=== PATIENT | male | born 1955 | race Caucasian/White ===

== ENCOUNTER 2018-10-10 20:33 | Inpatient (IN) | payer OTHER ==
--- NOTE | 2018-10-10 20:37 | PDOC ---
Rapid Medical Evaluation Time Seen by Provider: 10/10/18 20:35 Medical Evaluation: Allergies Allergy/AdvReac Type Severity Reaction Status Date / Time No Known Allergies Allergy Verified 09/07/12 18:19 10/10/18 20:35 I have performed a brief in-person evaluation of this patient. The patient presents with a chief complaint of: L testicular pain since 6pm, radiating to the L groin. Pertinent physical exam findings: Pt in painful distress I have ordered the following: Testicular sono R/O torsion The patient will proceed to the ED for further evaluation. Discharge Disposition - Diagnosis Testicular pain, left - Referrals - Patient Instructions - Post Discharge Activity
[2018-10-10] MEDS ORDERED: morphine SULFATE 4 MG/ML VIAL ONE (21:54)
[2018-10-10] MEDS ORDERED: morphine CARPU-JECT 4 MG/1 ML DISP.SYRIN IVPUSH ONE (22:25)
--- NOTE | 2018-10-10 22:40 | PDOC ---
History of Present Illness - General Chief Complaint: Pain, Acute Stated Complaint: PAIN TO GROIN Time Seen by Provider: 10/10/18 20:35 Past History - Past Medical History Allergies/Adverse Reactions: Allergies Allergy/AdvReac Type Severity Reaction Status Date / Time No Known Allergies Allergy Verified 10/10/18 20:39 Home Medications: Ambulatory Orders Atenolol [Tenormin -] 100 mg PO DAILY 10/10/18 Atorvastatin Ca [Lipitor] 10 mg PO HS 10/10/18 Linagliptin/Metformin HCl [Jentadueto 2.5 mg-1000 mg Tab] 1 each PO DAILY Olmesartan/Hydrochlorothiazide [Olmesartan-Hctz 40-12.5 mg Tab] 1 each PO DAILY 10/10/18 Tamsulosin HCl [Flomax -] 0.4 mg PO DAILY@0830 #30 cap.er.24h 10/13/18 oxyCODONE HCL [Roxicodone -] 5 mg PO Q6H PRN #7 tablet MDD 3 10/13/18 COPD: No Diabetes: Yes HTN: Yes - Suicide/Smoking/Psychosocial Hx Smoking Status: No Smoking History: Unknown if ever smoked Have you smoked in the past 12 months: No Number of Cigarettes Smoked Daily: 0 Information on smoking cessation initiated: No Hx Alcohol Use: No Drug/Substance Use Hx: No *Physical Exam - Vital Signs Last Vital Signs Temp Pulse Resp BP Pulse Ox 98.0 F 77 16 145/97 100 10/10/18 20:37 10/10/18 20:37 10/10/18 20:37 10/10/18 20:37 10/10/18 20:37 ED Treatment Course - LABORATORY CBC & Chemistry Diagram: 10/13/18 10:40 10/13/18 06:50 - Medications Given in the ED: ED Medications Discontinued Medications Generic Name Dose Route Start Last Admin Trade Name Freq PRN Reason Stop Dose Admin Morphine Sulfate 4 mg 10/10/18 22:25 10/10/18 22:04 Morphine Injection - IVPUSH 10/10/18 22:26 4 mg ONCE ONE Administration Medical Decision Making - Medical Decision Making HPI: 63yo M with PMH of HTN, HLD presenting with left testicular pain that started around 6pm. Patient has never had pain like this before. Does not have a urologist. Denies recent trauma. Has had hernia surgery in that region, but unknown which side. Denies urinary symptoms or history of kidneys stones. No fevers, chills, chest pain, or shortness of breath. PCP: Dr. Singh ROS: Constitutional: no fever, no chills HEENT: no throat pain, no dysphagia Cardiovascular: no chest pain, no palpitations Respiratory: no cough, no shortness of breath Gastrointestinal: no abdominal pain, no nausea Genitourinary: no dysuria, +L. testicle pain Musculoskeletal: no myalgia, no arthralgia Skin: no rash, no itching Neurologic: no headache, no weakness PE: General: Awake, alert, and fully oriented, writhing in pain Head: No signs of trauma Eyes: EOMI, sclera anicteric ENT: Moist mucus membranes Neck: Normal ROM, supple Lungs: Lungs clear, Normal breath sounds Cardio: Regular rhythm, S1 and S2 present Abdomen: Soft, nontender. No guarding, no rebound, no masses. No CVA tenderness : Normal genitalia; no lesions noted; no inguinal hernia noted Extremities: Normal range of motion, Distal pulses present SKIN: Warm, Dry, normal turgor Neurologic: Cranial nerves II through XII grossly intact. Normal speech ED Course/MDM: DDX including but not limited to testicular torsion, abscess, UTI, nephrolithiasis Morphine Labs Urology consult US, as read by radiology: "Scrotal ultrasound Clinical information: left testicular pain, evaluate for torsion The exam was performed utilizing grayscale and Doppler sonography. No Doppler evidence of testicular torsion, reported sensitivity 85%. Correlate clinically. Left-sided varicoceles are noted. Small left hydrocele. Multiple dilated fluid-filled tubular structures are seen within the testes bilaterally consistent with tubular ectasia/ dilatation of the rete testis. Within the left testis note is made of a 1.5 x 1.3 cm cyst without definite associated soft tissue nodularity. Urology consultation is suggested, nonemergent unless otherwise clinically indicated. The epididymal structures appear unremarkable bilaterally. Impression: As noted above. " Calls to Dr. Mcginnis 's office are "temporarily unavaialble" Will call Dr. Mcginnis's cell 10/10/18 22:39 Left voicemail message requesting callback on Dr. Mcginnis's cell phone 10/10/18 22:[address] Mcginnis. Ultrasound findings are unremarkable. Can follow up this week. Ice /tylenol as needed. Bactrim for UTI if present 10/10/18 23:23 CBC WBC 19.3 K/mm3 (4.0-10.0) H 10/10/18 22:35 RBC 4.02 M/mm3 (4.00-5.60) 10/10/18 22:35 Hgb 12.3 GM/dL (11.7-16.9) 10/10/18 22:35 Hct 37.1 % (35.4-49) 10/10/18 22:35 MCV 92.2 fl (80-96) 10/10/18 22:35 MCH 30.5 pg (25.7-33.7) 10/10/18 22:35 MCHC 33.1 g/dl (32.0-35.9) 10/10/18 22:35 RDW 13.7 % (11.9-15.9) 10/10/18 22:35 Plt Count 180 K/MM3 (134-434) 10/10/18 22:35 MPV 9.0 fl (7.5-11.1) 10/10/18 22:35 Absolute Neuts (auto) 7.6 K/mm3 (1.5-8.0) 10/10/18 22:35 Neutrophils % 39.5 % (42.8-82.8) L 10/10/18 22:35 Lymphocytes % 54.6 % (8-40) H 10/10/18 22:35 Monocytes % 5.1 % (3.8-10.2) 10/10/18 22:35 Eosinophils % 0.6 % (0-4.5) 10/10/18 22:35 Basophils % 0.2 % (0-2.0) 10/10/18 22:35 Nucleated RBC % 0 % (0-0) 10/10/18 22:35 Leukocytosis 19.3 CMP Sodium 144 mmol/L (136-145) 10/10/18 22:35 Potassium 4.3 mmol/L (3.5-5.1) 10/10/18 22:35 Chloride 104 mmol/L (98-107) 10/10/18 22:35 Carbon Dioxide 23 mmol/L (21-32) 10/10/18 22:35 Anion Gap 18 MMOL/L (8-16) H 10/10/18 22:35 BUN 38.2 mg/dL (7-18) H 10/10/18 22:35 Creatinine 2.4 mg/dL (0.55-1.3) H 10/10/18 22:35 Est GFR (CKD-EPI)AfAm 31.85 10/10/18 22:35 Est GFR (CKD-EPI)NonAf 27.48 10/10/18 22:35 Random Glucose 217 mg/dL (74-106) H 10/10/18 22:35 Calcium 10.1 mg/dL (8.5-10.1) 10/10/18 22:35 Total Bilirubin 0.6 mg/dL (0.2-1) 10/10/18 22:35 AST 18 U/L (15-37) 10/10/18 22:35 ALT 26 U/L (13-61) 10/10/18 22:35 Alkaline Phosphatase 110 U/L (45-117) 10/10/18 22:35 Total Protein 7.3 g/dl (6.4-8.2) 10/10/18 22:35 Albumin 4.5 g/dl (3.4-5.0) 10/10/18 22:35 Electrolytes unremarkable Elevated BUN and Cr suggestive of GALILEA UA with 3+ blood, 2+ LE, 10 WBC, 0.5 bacteria, 1.0 epithelia Will cover with [place] CT spiral, as read by Imaging e commerce solution architect: "Minimal left hydronephrosis, possibly due to 1-2 mm stone at left UVJ (not well seen, therefore artifact is an alternative possibility) or recently passed stone. At least one small stone left kidney. Unremarkable pancreas and gallbladder. No bowel obstruction, colitis, free fluid or free air. Normal appendix. Minimal splenomegaly Small umbilical hernia containing fat Small right greater than left inguinal region hernias containing fat. Calcifications or surgical sutures left inguinal canal Minimal bilateral gynecomastia" Patient reporting pain Morphine, fluids 10/11/18 01:34 Plan for admission EKG: rate 84, QTc, 430, NSR with sinus arrhythmia 10/11/18 02:27 Discussed case with CATRACHITA Reeves who accepted patient for admission under Dr. Singh 10/11/18 03:00 *DC/Admit/Observation/Transfer Diagnosis at time of Disposition: Testicular pain, left, GALILEA (acute kidney injury), Nephrolithiasis Hydronephrosis Qualifiers: Hydronephrosis type: unspecified Qualified Code(s): N13.30 - Unspecified hydronephrosis - Discharge Dispostion Disposition: HOME Condition at time of disposition: Guarded Decision to Admit order: Yes - Referrals - Patient Instructions - Post Discharge Activity
[2018-10-10 22:47] LABS: BASO % 0.2 % (0-2.0); EOS % 0.6 % (0-4.5); HEMATOCRIT 37.1 % (35.4-49); HEMOGLOBIN 12.3 GM/dL (11.7-16.9); LYMPH % 54.6 % (8-40); MCH 30.5 pg (25.7-33.7); MCHC 33.1 g/dl (32.0-35.9); MEAN CELL VOLUME 92.2 fl (80-96); MONO % 5.1 % (3.8-10.2); NEUT % 39.5 % (42.8-82.8); PLATELET COUNT 180 K/MM3 (134-434); RBC 4.02 M/mm3 (4.00-5.60); RDW 13.7 % (11.9-15.9); WHITE BLOOD COUNT 19.3 K/mm3 (4.0-10.0)
[2018-10-10 23:07] LABS: INR 1.1 (0.83-1.09)
[2018-10-10 23:18] LABS: ALBUMIN 4.5 g/dl (3.4-5.0); BILIRUBIN,TOTAL 0.6 mg/dL (0.2-1); BLOOD UREA NITROGEN 38.2 mg/dL (7-18); CALCIUM 10.1 mg/dL (8.5-10.1); CREATININE 2.4 mg/dL (0.55-1.3); POTASSIUM 4.3 mmol/L (3.5-5.1); TOT PROT 7.3 g/dl (6.4-8.2)
--- NOTE | 2018-10-10 23:22 | PDOC ---
Attending Attestation - Resident Resident Name: Shanti Lay - ED Attending Attestation I have performed the following: I have examined & evaluated the patient, The case was reviewed & discussed with the resident, I agree w/resident's findings & plan, Exceptions are as noted - HPI HPI: 10/10/18 23:22 this 63 yo male p/w testicular pain - Physicial Exam PE: 10/10/18 23:[address] Lay's physical exam - Medical Decision Making 10/10/18 23:22 testicular ultrasound: no testicular torsion,no epidymitis, + retes testes seen case discussed w Dr Pimentel and it is safe for pt to followup with him in the next week plan will check UA to r/o UTI LAB review shows GALILEA and a leukocytosis his story of chronic lymphocytic leukemia and is followed by Dr. Cade. I discussed his white count 19,000. They said this was his normal range I Reviewed his labs in 2017 and His creatinine was 0.9 and today it is 2.4. He is followed by Dr Singh and saw im 3 months ago 10/10/18 23:29 10/10/18 23:45 10/11/18 01:22 this showed 3+ blood and patient started to have recurring pain so there was concern for kidney stones and the patient was sent for spiral CT, looking for obstructive uropathy 10/11/18 02:35 ct scan shows left hydronephrosis,small calculi and the pt had recurrent pain labd reveal GALILEA pt will be admitted
[2018-10-11 00:30] LABS: HYALINE CASTS 4 /lpf (0-8); URINE APPEARANCE TURBID; URINE BACTERIA 0.5 /hpf (NEGATIVE); URINE BILIRUBIN NEGATIVE (NEGATIVE); URINE COLOR YELLOW; URINE GLUCOSE (UA) 1+ (NEGATIVE); URINE KETONE NEGATIVE (NEGATIVE); URINE LEUK ESTERASE 2+ (NEGATIVE); URINE NITRITE NEGATIVE (NEGATIVE); URINE PROTEIN TRACE (NEGATIVE); URINE UROBILINOGEN 0.2 mg/dL (0.2-1.0); URINE WBC 10 /hpf (0-5)
[2018-10-11] MEDS ORDERED: morphine CARPU-JECT 4 MG/1 ML DISP.SYRIN IVPUSH ONE (01:33)
[2018-10-11] MEDS ORDERED: CEFTRIAXONE 1,000 MG in DEXTROSE 5%-WATER - 50 ML IVPB ONE (01:35)
[2018-10-11] MEDS ORDERED: SODIUM CHLORIDE 1,000 ML IV STA (01:36)
[2018-10-11] MEDS ORDERED: CEFTRIAXONE 1 GM/50 ML BAG ONE (02:30)
[2018-10-11] MEDS ORDERED: morphine SULFATE 4 MG/ML VIAL ONE (02:30)
--- NOTE | 2018-10-11 03:09 | HP ---
Admitting History and Physical - Primary Care Physician PCP: Michael Singh - Admission Chief Complaint: L- Testicular Pain, L- Groin Pain History of Present Illness: This is a 65 y/o man with a PMHx of HTN, DM, CLL( no treatment). Who presents to the ED with sudden onset of L- testicular pain radiating to the L- groin since 1800 yesterday.Patient reports while at work he began to have sharp pains that were increasing with intensity now radiates to L- flank. Patient denies fever, chills, cough, SOB, CP, palpitations, N/V/D, constipation, dysuria History Source: Patient Limitations to Obtaining History: No Limitations - Past Medical History Cardiovascular: Yes: HTN Heme/Onc: Yes: Cancer (CLL) Endocrine: Yes: Diabetes Mellitus - Smoking History Smoking history: Unknown if ever smoked Have you smoked in the past 12 months: No Aproximately how many cigarettes per day: 0 - Alcohol/Substance Use Hx Alcohol Use: No History of Substance Use: reports: None - Social History ADL: Independent History of Recent Travel: No Home Medications - Allergies Allergies/Adverse Reactions: Allergies Allergy/AdvReac Type Severity Reaction Status Date / Time No Known Allergies Allergy Verified 10/10/18 20:39 - Home Medications Home Medications: Ambulatory Orders Atenolol [Tenormin -] 100 mg PO DAILY 10/10/18 Atorvastatin Ca [Lipitor] 10 mg PO HS 10/10/18 Linagliptin/Metformin HCl [Jentadueto 2.5 mg-1000 mg Tab] 1 each PO DAILY Olmesartan/Hydrochlorothiazide [Olmesartan-Hctz 40-12.5 mg Tab] 1 each PO DAILY 10/10/18 Family Disease History - Family Disease History Family Disease History: Heart Disease: Father (Stroke, ), Mother ( ) Review of Systems - Review of Systems Constitutional: reports: No Symptoms Eyes: reports: No Symptoms HENT: reports: No Symptoms Neck: reports: No Symptoms Cardiovascular: reports: No Symptoms Respiratory: reports: No Symptoms Gastrointestinal: reports: No Symptoms Genitourinary: reports: Flank Pain, Testicular Pain, Other (Groin pain). denies : Dysuria Breasts: reports: No Symptoms Reported Musculoskeletal: reports: No Symptoms Integumentary: reports: No Symptoms Neurological: reports: No Symptoms Endocrine: reports: No Symptoms Hematology/Lymphatic: reports: No Symptoms Psychiatric: reports: No Symptoms Pain Intensity: 8 Physical Examination Vital Signs: Vital Signs Temperature 98.0 F 10/10/18 20:37 Pulse Rate 77 10/10/18 20:37 Respiratory Rate 16 10/10/18 20:37 Blood Pressure 145/97 10/10/18 20:37 O2 Sat by Pulse Oximetry (%) 100 10/10/18 20:37 Constitutional: Yes: No Distress, Calm Eyes: Yes: WNL, Conjunctiva Clear, EOM Intact, PERRL HENT: Yes: WNL, Atraumatic, Normocephalic Neck: Yes: WNL, Supple, Trachea Midline Cardiovascular: Yes: WNL, Regular Rate and Rhythm, S1, S2 Respiratory: Yes: WNL, Regular, CTA Bilaterally Gastrointestinal: Yes: Normal Bowel Sounds, Tenderness (LLQ) Renal/: Yes: Other ( L- testicular TTP L- groin TTP) Breast(s): Yes: WNL Musculoskeletal: Yes: WNL Extremities: Yes: WNL Edema: No Peripheral Pulses WNL: Yes Neurological: Yes: WNL, Alert, Oriented, Cran Nerves II-XII Intact ...Motor Strength: WNL Psychiatric: Yes: WNL, Alert, Oriented Labs: CBC, BMP 10/10/18 22:35 10/10/18 22:35 Laboratory Results - last 24 hr 10/10/18 10/10/18 10/10/18 22:35 22:35 22:35 WBC 19.3 H RBC 4.02 Hgb 12.3 Hct 37.1 MCV 92.2 MCH 30.5 MCHC 33.1 RDW 13.7 Plt Count 180 MPV 9.0 Absolute Neuts (auto) 7.6 Neutrophils % 39.5 L Lymphocytes % 54.6 H Monocytes % 5.1 Eosinophils % 0.6 Basophils % 0.2 Nucleated RBC % 0 PT with INR 13.00 INR 1.10 H Sodium 144 Potassium 4.3 Chloride 104 Carbon Dioxide 23 Anion Gap 18 H BUN 38.2 H Creatinine 2.4 H Est GFR (CKD-EPI)AfAm 31.85 Est GFR (CKD-EPI)NonAf 27.48 Random Glucose 217 H Calcium 10.1 Total Bilirubin 0.6 AST 18 ALT 26 Alkaline Phosphatase 110 Total Protein 7.3 Albumin 4.5 Urine Color Urine Appearance Urine pH Ur Specific [place] Urine Protein Urine Glucose (UA) Urine Ketones Urine Blood Urine Nitrite Urine Bilirubin Urine Urobilinogen Ur Leukocyte Esterase Urine WBC (Auto) Urine RBC (Auto) Urine Casts (Auto) U Epithel Cells (Auto) Urine Bacteria (Auto) Urine Yeast (Auto) 10/11/18 00:12 WBC RBC Hgb Hct MCV MCH MCHC RDW Plt Count MPV Absolute Neuts (auto) Neutrophils % Lymphocytes % Monocytes % Eosinophils % Basophils % Nucleated RBC % PT with INR INR Sodium Potassium Chloride Carbon Dioxide Anion Gap BUN Creatinine Est GFR (CKD-EPI)AfAm Est GFR (CKD-EPI)NonAf Random Glucose Calcium Total Bilirubin AST ALT Alkaline Phosphatase Total Protein Albumin Urine Color Yellow Urine Appearance Turbid Urine pH 5.0 Ur Specific [place] 1.016 Urine Protein Trace Urine Glucose (UA) 1+ H Urine Ketones Negative Urine Blood 3+ H Urine Nitrite Negative Urine Bilirubin Negative Urine Urobilinogen 0.2 Ur Leukocyte Esterase 2+ H Urine WBC (Auto) 10 Urine RBC (Auto) 19.0 Urine Casts (Auto) 4 U Epithel Cells (Auto) 1.0 Urine Bacteria (Auto) 0.5 Urine Yeast (Auto) None seen Intake & Output 10/08/18 10/09/18 10/10/18 10/11/18 23:59 23:59 23:59 23:59 Weight 79.379 kg 86.818 kg Imaging - Results Chest X-ray: Image Reviewed Cat Scan: Image Reviewed Ultrasound: Image Reviewed Problem List - Problems (1) GALILEA (acute kidney injury) Code(s): N17.9 - ACUTE KIDNEY FAILURE, UNSPECIFIED (2) Nephrolithiasis Code(s): N20.0 - CALCULUS OF KIDNEY (3) UTI (urinary tract infection) Code(s): N39.0 - URINARY TRACT INFECTION, SITE NOT SPECIFIED (4) Hydronephrosis Code(s): N13.30 - UNSPECIFIED HYDRONEPHROSIS Qualifiers: Hydronephrosis type: unspecified Qualified Code(s): N13.30 - Unspecified hydronephrosis (5) Testicular pain, left Code(s): N50.812 - LEFT TESTICULAR PAIN (6) HTN (hypertension) Code(s): I10 - ESSENTIAL (PRIMARY) HYPERTENSION (7) Diabetes mellitus Code(s): E11.9 - TYPE 2 DIABETES MELLITUS WITHOUT COMPLICATIONS (8) CLL (chronic lymphocytic leukemia) Code(s): C91.90 - LYMPHOID LEUKEMIA, UNSPECIFIED NOT HAVING ACHIEVED REMISSION Assessment/Plan This is a 63 y/o man with a PMHx of HTN, DM, CLL. Admitted to Med Surg for GALILEA, Nephrolithasis, UTI, Hydronephrosis for further evaluation of their emergent condition. Plan: Admit GALILEA Cr 2.4 (baseline 0.9) Likely due to Hydronephrosis NS fluid bolus given in ED Will continue IVF Monitor BMP Nephrolithasis, Hydronephrosis CTAP-minimal L- hydronephrosis 1-2mm stones- left UVJ, small umbilical hernia fat containing, R>L ingunial hernia with fat Scrotal US report- L- sided varioceles, small L hydrocele, neg testicular torsion Icepack to L- groin 20min on/off as tolerated Flomax Strain all urine Appreciate Urology consult UTI UA- +3 blood, +2 Lorna Esterase, 10 WBC Urine Culture- pending Ceftriaxone given in ED will continue Leukocytosis WBC 19.3 possibly due to infection vs malignancy Monitor CBC, BMP Blood Cultures-pending Diabetes Mellitus BGMs ISS Hypertension stable Monitor BP Continue Tenormin with parameters Hold HCTZ secondary to GALILEA Monitor renal function FEN NS@75ml/hr Replete lytes prn Diabetic, Low Na Diet DVT ppx OOB SCDs AC held secondary to Hematuria Dispo: Requires Inpatient Care Visit type - Emergency Visit Emergency Visit: Yes ED Registration Date: 10/10/18 Care time: The patient presented to the Emergency Department on the above date and was hospitalized for further evaluation of their emergent condition. - New Patient This patient is new to me today: Yes Date on this admission: 10/11/18 - Critical Care Critical Care patient: No
[2018-10-11] MEDS ORDERED: SODIUM CHLORIDE 1,000 ML IV SCH (03:15)
[2018-10-11 04:51] VITALS: BMI 26.8
[2018-10-11 05:54] LABS: YEAST NONE SEEN (NEGATIVE)
[2018-10-11] MEDS ORDERED: morphine SULFATE 4 MG/ML VIAL IVPUSH PRN (05:56)
[2018-10-11 07:10] LABS: BASO % 0.3 % (0-2.0); EOS % 0.5 % (0-4.5); HEMATOCRIT 35.2 % (35.4-49); HEMOGLOBIN 11.7 GM/dL (11.7-16.9); LYMPH % 58.3 % (8-40); MCH 30.6 pg (25.7-33.7); MCHC 33.1 g/dl (32.0-35.9); MEAN CELL VOLUME 92.5 fl (80-96); MEAN PLT VOLUME 8.6 fl (7.5-11.1); MONO % 5.6 % (3.8-10.2); NEUT % 35.3 % (42.8-82.8); PLATELET COUNT 153 K/MM3 (134-434); RBC 3.81 M/mm3 (4.00-5.60); RDW 13.4 % (11.9-15.9); WHITE BLOOD COUNT 16.2 K/mm3 (4.0-10.0)
[2018-10-11 07:21] LABS: BLOOD UREA NITROGEN 37.7 mg/dL (7-18); CALCIUM 9.2 mg/dL (8.5-10.1); CREATININE 2.3 mg/dL (0.55-1.3); POTASSIUM 4.1 mmol/L (3.5-5.1)
--- NOTE | 2018-10-11 09:02 | EKG ---
Test Reason : Blood Pressure : / mmHG Vent. Rate : 084 BPM Atrial Rate : 084 BPM P-R Int : 196 ms QRS Dur : 104 ms QT Int : 364 ms P-R-T Axes : 049 017 021 degrees QTc Int : 430 ms NORMAL SINUS RHYTHM WITH SINUS ARRHYTHMIA NORMAL ECG NO PREVIOUS ECGS AVAILABLE Confirmed by DEBBY MUNOZ, AAKASH ([id number]) on 10/11/2018 9:02:11 AM Referred By: Confirmed By:AAKASH GUARDADO MD
[2018-10-11] MEDS: TAMSULOSIN HCL 0.4 MG CAP PO SCH (09:13)
--- NOTE | 2018-10-11 09:16 | PN ---
Progress Note, Physician - Current Medication List Current Medications: Active Medications Atenolol (Tenormin -) 100 mg PO DAILY [facility] Atorvastatin Calcium (Lipitor -) 10 mg PO HS [facility] Sodium Chloride (Normal Saline -) 1,000 mls @ 75 mls/hr IV ASDIR [facility] Last Admin: 10/11/18 04:46 Dose: 75 mls/hr Morphine Sulfate (Morphine Sulfate) 4 mg IVPUSH Q6H PRN PRN Reason: PAIN LEVEL 6-10 Last Admin: 10/11/18 06:10 Dose: 4 mg Tamsulosin HCl (Flomax -) 0.4 mg PO DAILY@0830 [facility] Last Admin: 10/11/18 09:13 Dose: 0.4 mg - Objective Vital Signs: Vital Signs Temperature 98.2 F 10/11/18 04:47 Pulse Rate 83 10/11/18 04:47 Respiratory Rate 20 10/11/18 04:47 Blood Pressure 137/84 10/11/18 04:47 O2 Sat by Pulse Oximetry (%) 97 10/11/18 04:51 Cardiovascular: Yes: Regular Rate and Rhythm Respiratory: Yes: Regular, CTA Bilaterally Gastrointestinal: Yes: Normal Bowel Sounds, Soft Genitourinary: Yes: CVA Tenderness - Left Labs: CBC, BMP 10/11/18 05:10 10/11/18 05:10 INR, PTT INR 1.10 (0.83-1.09) H 10/10/18 22:35 Problem List - Problems (1) Nephrolithiasis Assessment/Plan: pain control ivf urology iv abx Code(s): N20.0 - CALCULUS OF KIDNEY (2) GALILEA (acute kidney injury) Assessment/Plan: ivf monitor renal consult Code(s): N17.9 - ACUTE KIDNEY FAILURE, UNSPECIFIED (3) CLL (chronic lymphocytic leukemia) Code(s): C91.90 - LYMPHOID LEUKEMIA, UNSPECIFIED NOT HAVING ACHIEVED REMISSION (4) Diabetes mellitus Assessment/Plan: bgm Code(s): E11.9 - TYPE 2 DIABETES MELLITUS WITHOUT COMPLICATIONS (5) HTN (hypertension) Assessment/Plan: monitor bp Code(s): I10 - ESSENTIAL (PRIMARY) HYPERTENSION
[2018-10-11] MEDS: ATENOLOL 50 MG TABLET (FP) PO SCH (09:27)
--- NOTE | 2018-10-11 13:03 | CONSULT ---
Consult - text type - Consultation Consultation Note: Renal consult for GALILEA This is a 65 year old gentleman with history of hypertension, DM Type 2, CLL ( no active treatment) who presented with groin pain and found to have GALILEA with unilateral hydronephrosis and suspected obstructing stone. Baseline Cr 0.9 (2017 ). Pt seen and examined at the bedside. reports groin pain has shifted to abdominal pain. No fever, chills, sob, cp, N/V/D. Making urine. On IVF. No history of CHF. PMHx: as above Allergies: NKDA Family Hx: NC Social Hx: No T/A/D ROS: as per HPI, all other pertinent ros negative Home Medications Medication Instructions Recorded Atenolol [Tenormin -] 100 mg PO DAILY 10/10/18 Atorvastatin Ca [Lipitor] 10 mg PO HS 10/10/18 Linagliptin/Metformin HCl 1 each PO DAILY 10/10/18 [Jentadueto 2.5 mg-1000 mg Tab] Olmesartan/Hydrochlorothiazide 1 each PO DAILY 10/10/18 [Olmesartan-Hctz 40-12.5 mg Tab] Vital Signs Temperature 98.9 F 10/11/18 09:15 Pulse Rate 78 10/11/18 09:15 Respiratory Rate 20 10/11/18 09:15 Blood Pressure 138/77 10/11/18 09:15 O2 Sat by Pulse Oximetry (%) 97 10/11/18 04:51 Intake & Output 10/08/18 10/09/18 10/10/18 10/11/18 23:59 23:59 23:59 23:59 Intake Total 200 Balance 200 Weight 79.379 kg 86.818 kg NAD awake and alert neck supple, no JVD RRR CTA soft NT/ND No LE edema CBC, BMP 10/11/18 05:10 10/11/18 05:10 Laboratory Tests 10/11/18 05:10 Calcium 9.2 Laboratory Tests 10/11/18 10/11/18 00:12 05:10 Calcium 9.2 Urine Glucose (UA) 1+ H Urine Blood 3+ H Ur Leukocyte Esterase 2+ H Current Medications Atenolol (Tenormin -) 100 mg PO DAILY [facility] Last Admin: 10/11/18 09:27 Dose: 100 mg Atorvastatin Calcium (Lipitor -) 10 mg PO HS [facility] Sodium Chloride (Normal Saline -) 1,000 mls @ 75 mls/hr IV ASDIR [facility] Last Admin: 10/11/18 04:46 Dose: 75 mls/hr Ceftriaxone Sodium 1 gm/ (Dextrose) 50 mls @ 100 mls/hr IVPB DAILY [facility]; Protocol Insulin Aspart (Novolog Vial Sliding Scale -) 1 vial SQ ACHS [facility]; Protocol Morphine Sulfate (Morphine Sulfate) 4 mg IVPUSH Q6H PRN PRN Reason: PAIN LEVEL 6-10 Last Admin: 10/11/18 06:10 Dose: 4 mg Tamsulosin HCl (Flomax -) 0.4 mg PO DAILY@0830 [facility] Last Admin: 10/11/18 09:13 Dose: 0.4 mg 65 year old gentleman with history of hypertension, DM Type 2, CLL (no active treatment) who presented with groin pain and found to have GALILEA with unilateral hydronephrosis and suspected obstructing stone. Baseline Cr 0.9 (2017) 1. acute kidney injury in setting of left hydronephrosis and obstructing stone 2. Hydronephrosis with obstructing stone at UVJ 3. Nephrolithiasis 4. suspected pylonephritis/UTI 5. Leukocytosis 6. Hypertension Renal function stable over the first 2 lab draws no acute indication for dialysis withhold any LISA/ARB or NSAIDs Continue isotonic IVF Urology consult pending diameter of stone is less then 5mm so should pass spontaneously continue flomax 0.4mg Daily continue empiric antibiotics as per ID Trend renal function and electrolytes daily Thank you will follow Paramjit Parikh DO
[2018-10-11] MEDS ORDERED: DEXTROSE 5%-WATER - 50 ML IVPB ONE (14:32)
[2018-10-11] MEDS ORDERED: cefTRIAXone SODIUM 1 GM VIAL ONE (14:32)
[2018-10-11] MEDS: DOCUSATE SODIUM 100 MG CAPSULE (FP) PO SCH ×2 (14:33→21:15)
[2018-10-11] MEDS: SODIUM CHLORIDE 1,000 ML IV SCH (14:37)
[2018-10-11] MEDS: CEFTRIAXONE 1 GM in DEXTROSE 5%-WATER - 50 ML IVPB SCH (14:37)
--- NOTE | 2018-10-11 15:59 | PN ---
Progress Note (short form) - Note Progress Note: ID consult dictated imp/reccd 63 yo man with DM and CLL admitted with leftinguinal pain found to have GALILEA galilea obstucting UVJ stone (nephrolithiasis with hydronephrosis (left)) UTI leukocytosis secondary to CLL continue ceftriaxone f/u cultures continue ivf urology consult Problem List - Problems (1) GALILEA (acute kidney injury) Code(s): N17.9 - ACUTE KIDNEY FAILURE, UNSPECIFIED (2) Nephrolithiasis Code(s): N20.0 - CALCULUS OF KIDNEY (3) UTI (urinary tract infection) Code(s): N39.0 - URINARY TRACT INFECTION, SITE NOT SPECIFIED (4) CLL (chronic lymphocytic leukemia) Code(s): C91.90 - LYMPHOID LEUKEMIA, UNSPECIFIED NOT HAVING ACHIEVED REMISSION
[2018-10-11] MEDS: INSULIN SLIDING SCALE (NOVOLOG) 1 VIAL SQ SCH ×2 (16:40→21:16)
--- NOTE | 2018-10-11 17:06 | CONS ---
DATE OF CONSULTATION: DATE OF DICTATION: 10/11/2018 INFECTIOUS DISEASE CONSULTATION REQUESTING PHYSICIAN: Michael Singh M.D. CONSULTING PHYSICIAN: Acacia Keenan M.D. HISTORY OF PRESENT ILLNESS: This is a 63-year-old man, past medical history of hypertension, diabetes, CLL. He presents to the ER with left testicular pain radiating to the left groin. It started acutely on the day prior to admission. He denied any fevers, chills, dysuria, or hematuria. He was seen in the emergency room where he had a scrotal ultrasound given his complaints that was notable for a small left hydrocele. He has tubular ectasia and he has a cyst. He had a CAT scan of his abdomen, pelvis done as well in the ER that was notable for a 1-2 mm partially obstructing calculus at the left UVJ with minimal hydronephrosis. He has additional nonobstructing kidney stone in the left kidney. He has splenomegaly and a right inguinal hernia. He was evaluated in the ER and started on IV fluids and he was started on ceftriaxone and fluids. I am asked to see him for further evaluation. PAST MEDICAL HISTORY: As stated before, notable for hypertension, CLL and diabetes. He is followed by Dr. Cade for his CLL and his baseline white count of 19, 000. He has a history as well of diabetes. SURGICAL HISTORY: Unremarkable. SOCIAL HISTORY: There is no history of any substance use. ALLERGIES: No known drug allergies. MEDICATION: He takes Tenormin, Lipitor, metformin, and olmesartan hydrochlorothiazide as an outpatient. FAMILY HISTORY: Notable for heart disease in his father and his mother. REVIEW OF SYSTEMS: He still has some right groin pain but it is markedly improved. PHYSICAL EXAMINATION: Vital Signs: His current temperature is his T-max which is 99.8, pulse is 79, blood pressure 139/77, respiratory rate 20. HEENT: Normocephalic. Eyes are anicteric. Neck: Supple. Lungs: Clear to auscultation. Heart: Regular rate and rhythm. Abdomen: Soft, nontender. He has no suprapubic or CVA tenderness. He still has some left inguinal discomfort. Extremities: He has no edema of his legs. LABORATORY: His white count on admission was 19, repeat today is 16.2, hemoglobin 11.7, platelets are 153. He has ANC of 5.7 and he has 58.3% lymphocytes. INR is 1.1, BUN and creatinine are 37 and 2.3. LFTs are normal. Urinalysis has 3+ blood, 2+ leukocytes, 10 white cells and 19 red cells. Urine and blood cultures are pending. His creatinine is 2.3. IMPRESSION: In summary, this is a 63-year-old man admitted with acute kidney injury on the basis of an obstructing stone. As well he has evidence of a urinary tract infection. Would suggest continue intravenous hydration. Would continue the ceftriaxone as ordered. He has no history of recent oral antibiotics. He has no history of prior urinary tract infection and he should be seen by the urologist. Will follow up on his cultures. Further recommendations to follow. Suspect his leukocytosis is on the basis of his chronic lymphocytic leukemia. ACACIA KEENAN M.D. [id number] MTDD
[2018-10-11] MEDS: ATORVASTATIN CA 10 MG TABLET (FP) PO SCH (21:15)
[2018-10-12] MEDS: SODIUM CHLORIDE 1,000 ML IV SCH (01:11)
[2018-10-12] MEDS: INSULIN SLIDING SCALE (NOVOLOG) 1 VIAL SQ SCH ×4 (06:39→22:27)
[2018-10-12] MEDS: DOCUSATE SODIUM 100 MG CAPSULE (FP) PO SCH ×3 (06:39→22:30)
[2018-10-12 08:16] LABS: BASO % 0.2 % (0-2.0); EOS % 1.3 % (0-4.5); HEMATOCRIT 30.3 % (35.4-49); HEMOGLOBIN 10.3 GM/dL (11.7-16.9); LYMPH % 61.8 % (8-40); MCH 31.1 pg (25.7-33.7); MCHC 34.1 g/dl (32.0-35.9); MEAN CELL VOLUME 91.2 fl (80-96); MEAN PLT VOLUME 8.2 fl (7.5-11.1); MONO % 7.3 % (3.8-10.2); NEUT % 29.4 % (42.8-82.8); PLATELET COUNT 128 K/MM3 (134-434); RBC 3.32 M/mm3 (4.00-5.60); RDW 13.8 % (11.9-15.9); WHITE BLOOD COUNT 12.9 K/mm3 (4.0-10.0)
[2018-10-12 08:42] LABS: ALBUMIN 3.4 g/dl (3.4-5.0); BILIRUBIN,TOTAL 0.8 mg/dL (0.2-1); BLOOD UREA NITROGEN 23.8 mg/dL (7-18); CALCIUM 8.3 mg/dL (8.5-10.1); CREATININE 1.4 mg/dL (0.55-1.3); MAGNESIUM 1.7 mg/dL (1.8-2.4); PHOSPHOROUS 3.1 mg/dL (2.5-4.9); TOT PROT 5.7 g/dl (6.4-8.2)
[2018-10-12] MEDS: TAMSULOSIN HCL 0.4 MG CAP PO SCH (08:54)
[2018-10-12] MEDS ORDERED: DEXTROSE 5%-WATER - 50 ML IVPB ONE (08:55)
[2018-10-12] MEDS ORDERED: cefTRIAXone SODIUM 1 GM VIAL ONE (08:55)
[2018-10-12] MEDS: ATENOLOL 50 MG TABLET (FP) PO SCH (09:00)
[2018-10-12] MEDS: CEFTRIAXONE 1 GM in DEXTROSE 5%-WATER - 50 ML IVPB SCH (09:00)
[2018-10-12] MEDS: SODIUM CHLORIDE 0.45% 1,000 ML IV SCH ×2 (11:33→21:59)
[2018-10-12] MEDS ORDERED: PT OWN MED DRAWER 7, Y5N ONE ×2 (11:47→20:50)
--- NOTE | 2018-10-12 12:07 | PN ---
Progress Note (short form) - Note Progress Note: Renal follow up for GALILEA Seen and examined at the bedside reports feeling much better, no abd pain today making a lot of urine no CP, SOB, fever, chills on IVF Vital Signs Temperature 98.8 F 10/12/18 09:00 Pulse Rate 70 10/12/18 09:00 Respiratory Rate 18 10/12/18 09:00 Blood Pressure 126/79 10/12/18 09:00 O2 Sat by Pulse Oximetry (%) 97 10/12/18 09:00 Intake & Output 10/09/18 10/10/18 10/11/18 10/12/18 23:59 23:59 23:59 23:59 Intake Total 1650 1350 Balance 1650 1350 Weight 79.379 kg 86.818 kg NAD RRR CTA soft NT/ND No LE edema CBC, BMP 10/12/18 06:35 10/12/18 06:35 Current Medications Atenolol (Tenormin -) 100 mg PO DAILY [facility] Last Admin: 10/12/18 09:00 Dose: 100 mg Atorvastatin Calcium (Lipitor -) 10 mg PO HS [facility] Last Admin: 10/11/18 21:15 Dose: 10 mg Docusate Sodium (Colace -) 100 mg PO TID [facility] Last Admin: 10/12/18 06:39 Dose: 100 mg Ceftriaxone Sodium 1 gm/ (Dextrose) 50 mls @ 100 mls/hr IVPB DAILY [facility]; Protocol Last Admin: 10/12/18 09:00 Dose: 100 mls/hr Sodium Chloride (1/2 Normal Saline) 1,000 mls @ 100 mls/hr IV ASDIR [facility] Last Admin: 10/12/18 11:33 Dose: 100 mls/hr Insulin Aspart (Novolog Vial Sliding Scale -) 1 vial SQ ACHS [facility]; Protocol Last Admin: 10/12/18 11:13 Dose: Not Given Morphine Sulfate (Morphine Sulfate) 4 mg IVPUSH Q6H PRN PRN Reason: PAIN LEVEL 6-10 Last Admin: 10/11/18 06:10 Dose: 4 mg Tamsulosin HCl (Flomax -) 0.4 mg PO DAILY@0830 [facility] Last Admin: 10/12/18 08:54 Dose: 0.4 mg 65 year old gentleman with history of hypertension, DM Type 2, CLL (no active treatment) who presented with groin pain and found to have GALILEA with unilateral hydronephrosis and suspected obstructing stone. Baseline Cr 0.9 (2017) 1. acute kidney injury in setting of left hydronephrosis and obstructing stone 2. Hydronephrosis with obstructing stone at UVJ 3. Nephrolithiasis 4. suspected pylonephritis/UTI 5. Leukocytosis 6. Hypertension 7. Hypernatremia Renal function now improving possibly indicting a passed stone and relief of obstruction Check IVF to 02/08 NS Urology evaluation pending continue empiric antibiotics as per ID, cultures negative thus far Trend renal function and electrolytes daily Paramjit Parikh DO
[2018-10-12 12:32] LABS: ANISOCYTOSIS 0; MACROCYTOSIS 0; PLATELET ESTIMATE DECREASED
--- NOTE | 2018-10-12 13:12 | PN ---
Progress Note, Physician Chief Complaint: GALILEA Nephrolithiasis Hydronephrosis History of Present Illness: Previous notes and events reviewed awake and alert NAD denies hematuria, dysuria no CVA tenderness - Current Medication List Current Medications: Active Medications Atenolol (Tenormin -) 100 mg PO DAILY [facility] Last Admin: 10/12/18 09:00 Dose: 100 mg Atorvastatin Calcium (Lipitor -) 10 mg PO HS [facility] Last Admin: 10/11/18 21:15 Dose: 10 mg Docusate Sodium (Colace -) 100 mg PO TID [facility] Last Admin: 10/12/18 06:39 Dose: 100 mg Ceftriaxone Sodium 1 gm/ (Dextrose) 50 mls @ 100 mls/hr IVPB DAILY [facility]; Protocol Last Admin: 10/12/18 09:00 Dose: 100 mls/hr Sodium Chloride (1/2 Normal Saline) 1,000 mls @ 100 mls/hr IV ASDIR [facility] Last Admin: 10/12/18 11:33 Dose: 100 mls/hr Insulin Aspart (Novolog Vial Sliding Scale -) 1 vial SQ ACHS [facility]; Protocol Last Admin: 10/12/18 11:13 Dose: Not Given Morphine Sulfate (Morphine Sulfate) 4 mg IVPUSH Q6H PRN PRN Reason: PAIN LEVEL 6-10 Last Admin: 10/11/18 06:10 Dose: 4 mg Tamsulosin HCl (Flomax -) 0.4 mg PO DAILY@0830 [facility] Last Admin: 10/12/18 08:54 Dose: 0.4 mg - Objective Vital Signs: Vital Signs Temperature 98.8 F 10/12/18 09:00 Pulse Rate 70 10/12/18 09:00 Respiratory Rate 18 10/12/18 09:00 Blood Pressure 126/79 10/12/18 09:00 O2 Sat by Pulse Oximetry (%) 97 10/12/18 09:00 Constitutional: Yes: No Distress, Calm Eyes: Yes: Conjunctiva Clear HENT: Yes: Atraumatic Cardiovascular: Yes: Regular Rate and Rhythm Respiratory: Yes: Regular, CTA Bilaterally Gastrointestinal: Yes: Normal Bowel Sounds, Soft Musculoskeletal: Yes: WNL Extremities: Yes: WNL Edema: No Neurological: Yes: Alert, Oriented Psychiatric: Yes: Alert, Oriented Labs: CBC, BMP 10/12/18 06:35 10/12/18 06:35 INR, PTT INR 1.10 (0.83-1.09) H 10/10/18 22:35 Microbiology 10/11/18 00:12 Urine - Urine Clean Catch Urine Culture - Final NO GROWTH OBTAINED 10/11/18 06:10 Blood - Peripheral Venous Blood Culture - Preliminary NO GROWTH OBTAINED AFTER 24 HOURS, INCUBATION TO CONTINUE FOR 4 DAYS. 10/11/18 06:20 Blood - Peripheral Venous Blood Culture - Preliminary NO GROWTH OBTAINED AFTER 24 HOURS, INCUBATION TO CONTINUE FOR 4 DAYS. - ....Imaging Cat Scan: Report Reviewed Problem List - Problems (1) GALILEA (acute kidney injury) Assessment/Plan: -BUN/Cr 23.8/1.4 -renal on board -monitor renal function Code(s): N17.9 - ACUTE KIDNEY FAILURE, UNSPECIFIED (2) CLL (chronic lymphocytic leukemia) Code(s): C91.90 - LYMPHOID LEUKEMIA, UNSPECIFIED NOT HAVING ACHIEVED REMISSION (3) Diabetes mellitus Assessment/Plan: -BGM ACHS -ISS -diabetic diet Code(s): E11.9 - TYPE 2 DIABETES MELLITUS WITHOUT COMPLICATIONS (4) HTN (hypertension) Assessment/Plan: -Atenolol Code(s): I10 - ESSENTIAL (PRIMARY) HYPERTENSION (5) Hydronephrosis Assessment/Plan: -CT scan shows 1 to 2mm partially obstructing calculus at the left UVJ with minimal hydronephrosis -Urology on board -Tamsulosin Code(s): N13.30 - UNSPECIFIED HYDRONEPHROSIS Qualifiers: Hydronephrosis type: unspecified Qualified Code(s): N13.30 - Unspecified hydronephrosis (6) Nephrolithiasis Assessment/Plan: -Urology on board Code(s): N20.0 - CALCULUS OF KIDNEY (7) Testicular pain, left Assessment/Plan: -resolved -Scrotal US shows left sided varicoceles, small left hydrocele, multiple dilatedfluid filled tubular structures seen within the testes bilaterally consistent with tubular ectasia/dilatation, left testis with 1.5 x 1.3cm cyst -Urology on board Code(s): N50.812 - LEFT TESTICULAR PAIN (8) UTI (urinary tract infection) Assessment/Plan: -ID on board -Ceftriaxone -afebrile -leukocytosis wbc 12.9 -UA with 2+ leuks -UC neg Code(s): N39.0 - URINARY TRACT INFECTION, SITE NOT SPECIFIED Assessment/Plan see problem list dvt ppx
--- NOTE | 2018-10-12 15:17 | PN ---
Progress Note (short form) - Note Progress Note: pain improved Vital Signs Period Temp Pulse Resp BP Sys/Willis Pulse Ox Last 24 Hr 98.1 F-99.6 F 68-76 18-18 113-126/65-79 97-97 cor-rrr lungs decreased bs at bases abd soft,nt ext no edema CBC, BMP 10/12/18 06:35 10/12/18 06:35 Microbiology 10/11/18 00:12 Urine - Urine Clean Catch Urine Culture - Final NO GROWTH OBTAINED 10/11/18 06:10 Blood - Peripheral Venous Blood Culture - Preliminary NO GROWTH OBTAINED AFTER 24 HOURS, INCUBATION TO CONTINUE FOR 4 DAYS. 10/11/18 06:20 Blood - Peripheral Venous Blood Culture - Preliminary NO GROWTH OBTAINED AFTER 24 HOURS, INCUBATION TO CONTINUE FOR 4 DAYS. a/p GALILEA-resolving obstucting UVJ stone (nephrolithiasis with hydronephrosis (left)) UTI-culture negative leukocytosis secondary to CLL awaiting urology consult ?passed stone consider d/c antiibotics in am Problem List - Problems (1) GALILEA (acute kidney injury) Code(s): N17.9 - ACUTE KIDNEY FAILURE, UNSPECIFIED (2) Nephrolithiasis Code(s): N20.0 - CALCULUS OF KIDNEY (3) UTI (urinary tract infection) Code(s): N39.0 - URINARY TRACT INFECTION, SITE NOT SPECIFIED (4) CLL (chronic lymphocytic leukemia) Code(s): C91.90 - LYMPHOID LEUKEMIA, UNSPECIFIED NOT HAVING ACHIEVED REMISSION
--- NOTE | 2018-10-12 17:34 | CON.GU ---
Consult - History of Present Illness History of Present Illness: 63 yo male admitted with acute onset of left renal colic secondary to a 2 mm LDU stone. Now pain free since yesterday. No prior h/o nephrolithiasis. Creat and WBC elevated on admission although latter felt to be secondary to CLL. Both WBC and creatinine improving. No fever/chills. Urine culture neg - Past Medical History Cardio/Vascular: Yes: HTN Endocrine: Yes: Diabetes Mellitus - Alcohol/Substance Use Hx Alcohol Use: No History of Substance Use: reports: None - Smoking History Smoking history: Unknown if ever smoked Have you smoked in the past 12 months: No Aproximately how many cigarettes per day: 0 - Social History ADL: Independent History of Recent Travel: No Home Medications - Allergies Allergies/Adverse Reactions: Allergies Allergy/AdvReac Type Severity Reaction Status Date / Time No Known Allergies Allergy Verified 10/10/18 20:39 - Home Medications Home Medications: Ambulatory Orders Atenolol [Tenormin -] 100 mg PO DAILY 10/10/18 Atorvastatin Ca [Lipitor] 10 mg PO HS 10/10/18 Linagliptin/Metformin HCl [Jentadueto 2.5 mg-1000 mg Tab] 1 each PO DAILY Olmesartan/Hydrochlorothiazide [Olmesartan-Hctz 40-12.5 mg Tab] 1 each PO DAILY 10/10/18 Family Disease History - Family Disease History Family Disease History: Heart Disease: Father (Stroke, ), Mother ( ) Review of Systems - Review of Systems Genitourinary: reports: Testicular Pain Physical Exam- Vital Signs: Vital Signs Temperature 98.9 F 10/12/18 15:00 Pulse Rate 63 10/12/18 15:00 Respiratory Rate 18 10/12/18 15:00 Blood Pressure 128/69 10/12/18 15:00 O2 Sat by Pulse Oximetry (%) 97 10/12/18 09:00 Renal/: Yes: WNL Kidneys: Yes: WNL Labs: CBC, BMP 10/12/18 06:35 10/12/18 06:35 Imaging - Results Cat Scan: Image Reviewed Problem List - Problems (1) Calculus of distal left ureter Assessment/Plan: in light of small stone size, should pass with conservative management stable from standpoint if continues to improve clinically outpt followup next week Code(s): N20.1 - CALCULUS OF URETER
[2018-10-12] MEDS: ATORVASTATIN CA 10 MG TABLET (FP) PO SCH (22:30)
[2018-10-13] MEDS: SODIUM CHLORIDE 0.45% 1,000 ML IV SCH (05:47)
[2018-10-13] MEDS: DOCUSATE SODIUM 100 MG CAPSULE (FP) PO SCH (05:47)
[2018-10-13] MEDS: INSULIN SLIDING SCALE (NOVOLOG) 1 VIAL SQ SCH ×2 (06:19→13:08)
[2018-10-13 07:42] LABS: BLOOD UREA NITROGEN 20.9 mg/dL (7-18); CALCIUM 8.4 mg/dL (8.5-10.1); CREATININE 1.1 mg/dL (0.55-1.3); MAGNESIUM 1.7 mg/dL (1.8-2.4); PHOSPHOROUS 2.9 mg/dL (2.5-4.9); POTASSIUM 3.9 mmol/L (3.5-5.1)
[2018-10-13 07:46] LABS: HEMATOCRIT 31.3 % (35.4-49); HEMOGLOBIN 10.5 GM/dL (11.7-16.9); MCH 31.1 pg (25.7-33.7); MCHC 33.7 g/dl (32.0-35.9); MEAN CELL VOLUME 92.3 fl (80-96); MEAN PLT VOLUME 8.3 fl (7.5-11.1); PLATELET COUNT 129 K/MM3 (134-434); RBC 3.39 M/mm3 (4.00-5.60); RDW 13.4 % (11.9-15.9); WHITE BLOOD COUNT 11.5 K/mm3 (4.0-10.0)
[2018-10-13] MEDS: TAMSULOSIN HCL 0.4 MG CAP PO SCH (08:43)
[2018-10-13] MEDS ORDERED: DEXTROSE 5%-WATER - 50 ML IVPB ONE (10:08)
[2018-10-13] MEDS ORDERED: PT OWN MED DRAWER 7, Y5N ONE (10:08)
[2018-10-13] MEDS ORDERED: cefTRIAXone SODIUM 1 GM VIAL ONE (10:08)
[2018-10-13] MEDS: CEFTRIAXONE 1 GM in DEXTROSE 5%-WATER - 50 ML IVPB SCH (10:13)
[2018-10-13] MEDS: ATENOLOL 50 MG TABLET (FP) PO SCH (10:13)
[2018-10-13 10:18] VITALS: BP 146/83; PULSE 65; TEMP 98
--- NOTE | 2018-10-13 10:37 | PN ---
Progress Note (short form) - Note Progress Note: pain resolved Vital Signs Period Temp Pulse Resp BP Sys/Willis Pulse Ox Last 24 Hr 98 F-98.9 F 62-70 18-20 128-147/69-85 cor-rrr lungs clear abd soft,nt ext no edema CBC, BMP 10/13/18 06:50 10/13/18 06:50 Microbiology 10/11/18 06:10 Blood - Peripheral Venous Blood Culture - Preliminary NO GROWTH OBTAINED AFTER 48 HOURS, INCUBATION TO CONTINUE FOR 3 DAYS. 10/11/18 06:20 Blood - Peripheral Venous Blood Culture - Preliminary NO GROWTH OBTAINED AFTER 48 HOURS, INCUBATION TO CONTINUE FOR 3 DAYS. 10/11/18 00:12 Urine - Urine Clean Catch Urine Culture - Final NO GROWTH OBTAINED a/p GALILEA-resolving obstucting UVJ stone (nephrolithiasis with hydronephrosis (left))-?passed stone UTI-culture negative leukocytosis resolving cultures negative, can d/c antiibotics please call back if needed Problem List - Problems (1) GALILEA (acute kidney injury) Code(s): N17.9 - ACUTE KIDNEY FAILURE, UNSPECIFIED (2) Nephrolithiasis Code(s): N20.0 - CALCULUS OF KIDNEY (3) UTI (urinary tract infection) Code(s): N39.0 - URINARY TRACT INFECTION, SITE NOT SPECIFIED (4) CLL (chronic lymphocytic leukemia) Code(s): C91.90 - LYMPHOID LEUKEMIA, UNSPECIFIED NOT HAVING ACHIEVED REMISSION
[2018-10-13 10:58] LABS: BASO % 0.4 % (0-2.0); EOS % 2.1 % (0-4.5); HEMATOCRIT 32.5 % (35.4-49); LYMPH % 65.1 % (8-40); MCH 31.2 pg (25.7-33.7); MCHC 33.9 g/dl (32.0-35.9); MEAN CELL VOLUME 92.1 fl (80-96); MEAN PLT VOLUME 8.2 fl (7.5-11.1); MONO % 6.1 % (3.8-10.2); NEUT % 26.3 % (42.8-82.8); PLATELET COUNT 140 K/MM3 (134-434); RBC 3.53 M/mm3 (4.00-5.60); RDW 13.7 % (11.9-15.9); WHITE BLOOD COUNT 10.1 K/mm3 (4.0-10.0)
[2018-10-13 11:46] LABS: ANISOCYTOSIS 0; MACROCYTOSIS 0; PLATELET ESTIMATE DECREASED
--- NOTE | 2018-10-13 12:42 | DS ---
Physical Examination Vital Signs: Vital Signs Temperature 98 F 10/13/18 10:10 Pulse Rate 65 10/13/18 10:10 Respiratory Rate 20 10/13/18 10:10 Blood Pressure 146/83 10/13/18 10:10 O2 Sat by Pulse Oximetry (%) 97 10/12/18 09:00 Constitutional: Yes: Calm Neck: Yes: Trachea Midline Cardiovascular: Yes: Regular Rate and Rhythm, S1, S2 Respiratory: Yes: CTA Bilaterally Gastrointestinal: Yes: Normal Bowel Sounds, Soft Edema: No Neurological: Yes: Alert, Oriented Labs: CBC, BMP 10/13/18 10:40 10/13/18 06:50 Discharge Summary Reason For Visit: ACUTE KIDNEY INJJURY,HYDRONEPHROSIS,CALCULUS Current Active Problems GALILEA (acute kidney injury) (Acute) CLL (chronic lymphocytic leukemia) (Acute) Calculus of distal left ureter (Acute) Diabetes mellitus (Acute) HTN (hypertension) (Acute) Hydronephrosis (Acute) Nephrolithiasis (Acute) Testicular pain, left (Acute) UTI (urinary tract infection) (Acute) Other Procedures: ct scan 1-2 mm partial obstructing stone Hospital Course: PCP: Michael Singh - Admission Chief Complaint: L- Testicular Pain, L- Groin Pain History of Present Illness: This is a 65 y/o man with a PMHx of HTN, DM, CLL( no treatment). Who presents to the ED with sudden onset of L- testicular pain radiating to the L- groin since 1800 yesterday.Patient reports while at work he began to have sharp pains that were increasing with intensity now radiates to L- flank. Patient denies fever, chills, cough, SOB, CP, palpitations, N/V/D, constipation, dysuria paitent seenby urology and ID got iv abx then stopped got ivf- conservative management for small stone Condition: Guarded - Instructions Referrals: Fna Monge MD [Staff Physician] - 1 Week - Home Medications Comprehensive Discharge Medication List: Ambulatory Orders Atenolol [Tenormin -] 100 mg PO DAILY 10/10/18 Atorvastatin Ca [Lipitor] 10 mg PO HS 10/10/18 Linagliptin/Metformin HCl [Jentadueto 2.5 mg-1000 mg Tab] 1 each PO DAILY Olmesartan/Hydrochlorothiazide [Olmesartan-Hctz 40-12.5 mg Tab] 1 each PO DAILY 10/10/18
== END 2018-10-13 14:50 | disposition home or self-care (01) | DRG 683 ==
LOC: JER 20:33 → JERBED 10-11 03:01 → J5S 10-11 04:11
PROVIDERS: ADMIT Family Medicine; ATTEND Family Medicine
DX: N17.9 Acute kidney failure, unspecified (principal); C91.10 Chronic lymphocytic leukemia of B-cell type not having achieved remission; E87.0 Hyperosmolality and hypernatremia; I10 Essential (primary) hypertension; E11.9 Type 2 diabetes mellitus without complications; N50.812 Left testicular pain; N13.2 Hydronephrosis with renal and ureteral calculous obstruction
CPT/HCPCS: 36415; 71045-TC-FY; 74176-TC; 76870-TC; 80048; 80053; 81003; 82962; 83735; 84100; 85025; 85027; 85610; 87040; 87086; 93005; 93010; 99283-25; J7030

== ENCOUNTER 2022-07-16 11:10 | Emergency (ER) | payer OTHER, MEDICARE ==
[2022-07-16 11:27] VITALS: BP 147/78; PULSE 67; RESP 18; TEMP 98.3; BMI 27.3
== END 2022-07-16 12:29 | disposition home or self-care (01) ==
LOC: JERFT 11:10 → JER 11:10 → JERFT 12:29
DX: R21 Rash and other nonspecific skin eruption (principal); L23.7 Allergic contact dermatitis due to plants, except food
CPT/HCPCS: 99282-25